=== PATIENT | female | born 1990 | race Caucasian/White ===

== ENCOUNTER 2020-06-16 18:59 | Emergency (ER) | payer OTHER ==
[~2020-06-16] VITALS: Ht 172.7 cm; Wt 81.0 kg
[2020-06-16 19:01] VITALS: BP 148/95
[2020-06-16] MEDS ORDERED: PROPARACAINE OPHTH 0.5%, 15ML ONE (19:07)
[2020-06-16] MEDS ORDERED: FLUORESCEIN OPHTHALMIC 1 MG STRIP ONE (19:08)
[2020-06-16] MEDS ORDERED: ERYTHROMYCIN OPHTH 0.5%, 1GM LEFTEYE ONE (19:30)
--- NOTE | 2020-06-16 19:40 | NUR ---
NO S/S OF ABX RXN NOTED. DC EDUCATION PROVIDED, PT DEMONSTRATES UNDERSTANDING. PT AMBULATED STEADILY TO DC WITH RN.
== END 2020-06-16 19:36 | disposition home or self-care (01) ==
LOC: ED 19:35
DX: S05.02XA Injury of conjunctiva and corneal abrasion without foreign body, left eye, initial encounter (principal); W22.8XXA Striking against or struck by other objects, initial encounter; Y93.89 Activity, other specified; Y92.89 Other specified places as the place of occurrence of the external cause; Y99.8 Other external cause status
CPT/HCPCS: 99283